=== PATIENT | female | born 1960 | race Hispanic/Latino ===

== ENCOUNTER 2023-08-27 21:12 | Emergency (ER) | payer SELFPAY ==
--- NOTE | 2023-08-27 22:05 | ER ---
Nurse's Notes [facility] Name: Leta Tam Age: 62 yrs Sex: Female : 1960 Arrival Date: 08/27/2023 Time: 21:12 Bed IW3 Private MD: Diagnosis: Insomnia Presentation: 08/27 21:57 Chief complaint: Patient states: she has been having a problem sleeping and lack of ap3 appetite and is feeling weak for approx 2 months. Coronavirus screen: At this time, the client does not indicate any symptoms associated with coronavirus-19. Ebola Screen: No symptoms or risks identified at this time. Initial Sepsis Screen: Does the patient meet any 2 criteria? No. Patient's initial sepsis screen is negative. Does the patient have a suspected source of infection? No. Patient's initial sepsis screen is negative. Risk Assessment: Do you want to hurt yourself or someone else? Patient reports no desire to harm self or others. Onset of symptoms was June 2023. 21:57 Method Of Arrival: Ambulatory ap3 21:59 Acuity: ANITA 3 ap3 Triage Assessment: 21:58 General: Appears in no apparent distress. Behavior is anxious. Pain: Denies pain. ap3 Neuro: Level of Consciousness is awake, alert, obeys commands, Oriented to person, place, time, situation, Appropriate for age Reports weakness lack of sleep. Cardiovascular: Patient's skin is warm and dry. Respiratory: Airway is patent Respiratory effort is even, unlabored, Respiratory pattern is regular, symmetrical. GI: Reports lack of appetite. Historical: - Allergies: 21:58 No Known Allergies; ap3 - Home Meds: 21:58 None [Active]; ap3 - PMHx: 21:58 stroke 06/2023; ap3 - Immunization history:: Client reports having NOT received the Covid vaccine. - Social history:: Smoking status: Patient denies any tobacco usage or history of. Screenin:59 [facility] ED Fall Risk Assessment (Adult) History of falling in the last 3 months, ap3 including since admission No falls in past 3 months (0 pts). Abuse screen: Denies threats or abuse. Nutritional screening: No deficits noted. Tuberculosis screening: No symptoms or risk factors identified. Vital Signs: 21:57 Pulse 110; Resp 18; Temp 98.2; Pulse Ox 97% ; Weight 81.65 kg; Height 5 ft. 8 in. ; ap3 22:04 BP 171 / 98; ap3 22:43 Pulse 100; Resp 16 S; Pulse Ox 94% on R/A; as6 21:57 Body Mass Index 27.37 (81.65 kg, 172.72 cm) ap3 ED Course: 21:32 Patient arrived in ED. mr 21:36 Rhoda Graham [facility] sb4 21:36 Krishna Hyde MD is Attending Physician. sb4 21:59 Triage completed. ap3 21:59 Arm band placed on right wrist. ap3 22:44 Call light in reach. Provided Education on: rx teaching. as6 22:46 No provider procedures requiring assistance completed. Patient did not have IV access as6 during this emergency room visit. Administered Medications: 22:47 Drug: hydrOXYzine PO 50 mg PO once Route: PO; as6 22:47 Follow up: Response: No adverse reaction as6 Medication: 22:44 VIS not applicable for this client. as6 Outcome: 22:04 Discharge ordered by . sb4 22:46 Discharged to home ambulatory, with family, as6 22:46 Condition: stable 22:46 Discharge instructions given to patient, family, Instructed on discharge instructions, follow up and referral plans. medication usage, Demonstrated understanding of instructions, follow-up care, medications, Prescriptions given X 2, 22:47 Patient left the ED. as6 Signatures: Kavita Tomas, Jayson Tyler mr DeannzacharyFreida RN RN ap3 Homer Schafer RN RN as6 Rhoda Graham PA-C PA-C sb4
--- NOTE | 2023-08-27 22:05 | EDPHYS ---
Physician Documentation [facility] Name: Leta Tam Age: 62 yrs Sex: Female : 1960 Arrival Date: 08/27/2023 Time: 21:12 Bed IW3 Private MD: ED Physician Krishna Hyde HPI: 08/28 03:09 This 62 yrs old Female presents to ER via Ambulatory with complaints of sb4 Trouble sleeping. 03:09 patient states that she is experiencing insomnia secondary to anxiety. she has not sb4 taken any medications nor seen her PCP about this issue. no other associated signs and symptoms. no alleviating/aggravating factors. symptoms are mild in severity. Historical: - Allergies: 08/27 21:58 No Known Allergies; ap3 - Home Meds: 21:58 None [Active]; ap3 - PMHx: 21:58 stroke 06/2023; ap3 - Immunization history:: Client reports having NOT received the Covid vaccine. - Social history:: Smoking status: Patient denies any tobacco usage or history of. ROS: 08/28 03:09 Constitutional: Negative for fever, chills, and weight loss, sb4 Neuro: Psych: Positive for anxiety, insomnia, All other systems are negative, Exam: 03:09 Constitutional: This is a well developed, well nourished patient who is awake, alert, sb4 and in no acute distress. Head/Face: Normocephalic, atraumatic. Eyes: Extra-ocular motions intact. Periorbital areas with no swelling, redness, or edema. ENT: Mucous membranes moist. Skin: Warm, dry with normal turgor. Normal color with no rashes, no lesions, and no evidence of cellulitis. MS/ Extremity: Pulses equal, no cyanosis. Neurovascular intact. Full, normal range of motion. Neuro: Awake and alert, GCS 15, oriented to person, place, time, and situation. Motor strength 5/5 in all extremities. Sensory grossly intact. Psych: Awake, alert, with orientation to person, place and time. Behavior, mood, and affect are within normal limits. Vital Signs: 08/27 21:57 Pulse 110; Resp 18; Temp 98.2; Pulse Ox 97% ; Weight 81.65 kg; Height 5 ft. 8 in. ; ap3 22:04 BP 171 / 98; ap3 22:43 Pulse 100; Resp 16 S; Pulse Ox 94% on R/A; as6 21:57 Body Mass Index 27.37 (81.65 kg, 172.72 cm) ap3 MDM: 22:04 Patient medically screened. sb4 08/28 03:09 Differential diagnosis: anxiety, insomnia, depression. Data reviewed: vital signs, sb4 nurses notes, and as a result, I will discharge patient. Counseling: I had a detailed discussion with the patient and/or guardian regarding the historical points, exam findings, and any diagnostic results supporting the discharge/admit diagnosis, the need for outpatient follow up, for definitive care, to return to the emergency department if symptoms worsen or persist or if there are any questions or concerns that arise at home. Administered Medications: 08/27 22:47 Drug: hydrOXYzine PO 50 mg PO once Route: PO; as 22:47 Follow up: Response: No adverse reaction as6 Disposition Summary: 08/27/23 22:04 Discharge Ordered Notes: Location: Home sb4 Problem: an ongoing problem sb4 Symptoms: are unchanged sb4 Condition: Stable sb4 Diagnosis - Insomnia sb4 Followup: sb4 - With: Emergency Department - When: As needed - Reason: Trouble breathing, Worsening of condition Discharge Instructions: - Discharge Summary Sheet sb4 - Insomnia sb4 Forms: - Medication Reconciliation Form sb4 - Thank You Letter sb4 - Antibiotic Education sb4 - Prescription Opioid Use sb4 - Patient Portal Instructions sb4 - Leadership Thank You Letter sb4 Prescriptions: - melatonin 5 mg Sublingual Tablet, Sublingual - dissolve 1 tablet SUBLINGUAL route once daily at bedtime as needed for sleep; sb4 30 tablet; Refills: 0, Product Selection Permitted - Hydroxyzine HCl 50 mg Oral Tablet - take 1 tablet ORAL route every 8 hours As needed; 20 tablet; Refills: 0, sb4 Product Selection Permitted Addendum: 08/29/2023 10:36 I was immediately available for consultation during this patient's visit. I did not e c2 personally see the patient or guide the patient's care. . Signatures: Freida Khan RN RN ap3 Homer Schafer RN RN as6 Rhoda Graham, PAMoose PAMoose sb4 Krishna Hyde MD MD ec2
[2023-08-27] MEDS ORDERED: hydrOXYzine HCL 25 MG TAB ONE (22:54)
[2023-08-27 23:06] VITALS: TEMP 98.2
[2023-08-27 23:07] VITALS: BP 171/98
[2023-08-27 23:09] VITALS: O2SAT 94
== END 2023-08-27 22:47 | disposition home or self-care (01) ==
LOC: ER 21:12
DX: G47.00 Insomnia, unspecified (principal); R53.1 Weakness
CPT/HCPCS: 99283